=== PATIENT | male | born 1985 | race Caucasian/White ===

== ENCOUNTER 2018-12-12 06:04 | Emergency (ER) | payer MEDICAID ==
[~2018-12-12] VITALS: Ht 160 cm; Wt 64.9 kg
[2018-12-12 07:30] VITALS: BP 117/77
[2018-12-12] MEDS ORDERED: KETOROLAC TROMETH 60MG/2ML VIAL IM ONE (07:45)
== END 2018-12-12 08:31 | disposition home or self-care (01) ==
LOC: ER 06:12
DX: S20.221A Contusion of right back wall of thorax, initial encounter (principal); Z88.6 Allergy status to analgesic agent; Z88.8 Allergy status to other drugs, medicaments and biological substances; W51.XXXA Accidental striking against or bumped into by another person, initial encounter; Y93.89 Activity, other specified; Y92.39 Other specified sports and athletic area as the place of occurrence of the external cause; Y99.8 Other external cause status
CPT/HCPCS: 71046; 96372; 99283; J1885

== ENCOUNTER 2021-04-25 17:13 | Emergency (ER) | payer MEDICAID ==
[~2021-04-25] VITALS: Ht 160 cm; Wt 68.0 kg
[2021-04-26 01:46] VITALS: BP 146/92
== END 2021-04-26 02:00 | disposition home or self-care (01) ==
LOC: ER 17:13
DX: R09.89 Other specified symptoms and signs involving the circulatory and respiratory systems (principal); Z88.6 Allergy status to analgesic agent; Z88.8 Allergy status to other drugs, medicaments and biological substances
CPT/HCPCS: 70360

== ENCOUNTER → 2022-02-09 | Emergency (ER) | payer MEDICAID ==
[~2022-02-09] VITALS: Ht 160 cm; Wt 64.4 kg
[2022-02-09 17:34] VITALS: BP 135/74
== END | disposition left against medical advice (07) ==
LOC: ER 17:15
DX: F41.1 Generalized anxiety disorder (principal); Z53.21 Procedure and treatment not carried out due to patient leaving prior to being seen by health care provider